=== PATIENT | male | born 1935 | race Caucasian/White ===

== ENCOUNTER 2016-10-04 18:40 | Inpatient (IN) | payer MEDICARE, OTHER ==
[2016-10-04 18:07] LABS: BASO % 0.1 % (0-2); EOS % 1.3 % (0-7); EOSINOPHIL ABSOLUTE COUNT 0.1 tho/cmm (0.0-0.7); HCT-HEMATOCRIT 34.7 % (36.0-53.5); HGB-HEMOGLOBIN 11.7 gm/dl (13.5-17.0); IMMATURE GRANULOCYTES ABSOLUTE 0.13 tho/cmm (0-0.03); IMMATURE GRANULOCYTES PERCENT 1.3 % (0-0.3); LYMPH % 8.4 % (20-45); LYMPH ABSOLUTE COUNT 0.9 tho/cmm (0.8-4.5); MCH (MEAN CORPUSCULAR HGB) 33.5 pg (28.0-32.0); MCHC MEAN CORPUSCULAR HGB CONC 33.7 % (32.0-36.0); MCV (MEAN CELL VOLUME) 99.4 fl (82.0-96.0); MEAN PLATELET VOLUME 10.1 cmc (9.4-12.4); MONO % 8.2 % (0-12); MONOCYTE ABSOLUTE COUNT 0.8 tho/cmm (0.0-1.2); NEUTROPHIL ABSOLUTE COUNT 8.3 tho/cmm (1.6-8.0); NEUTROPHIL-AUTOMATED 8.3 tho/cmm (1.6-8.0); NEUTROPHILS % 80.7 % (40-80); PLATELET COUNT 153 tho/cmm (150-450); RED BLOOD COUNT 3.49 mil/cmm (4.40-5.70); RED CELL DISTRIBUTION WIDTH 14.6 % (12.4-16.4); WHITE BLOOD COUNT 10.2 tho/cmm (4.0-10.0)
[2016-10-04 18:28] LABS: ANION GAP 11 mmol/L (0-20); BLOOD UREA NITROGEN 41 mg/dl (6-24); CALCIUM 7.9 mg/dl (8.5-10.5); CARBON DIOXIDE-VENOUS 25 mmol/L (22-32); CHLORIDE 105 mmol/l (96-110); CREATININE 1.61 mg/dl (0.60-1.30); GLUCOSE 108 mg/dL (70-110); SODIUM 136 mmol/L (135-145); eGFR VALUE FOR BLACK 46 mL/Min
[2016-10-04 18:30] LABS: POTASSIUM 4.5 mmol/L (3.7-5.1)
[~2016-10-04 18:40] MED LIST: ADVAIR 25028 BLISTE1 INH; ALBUTEROL 90 MCG INH; ALBUTEROL 90MCG INH; AMITIZA24 MC1 PO; AMITIZA24 MCG PO; ANTACID650 MG PO; ANTI-ITCH222 ML TP; ARANESP100 MCG/0. SC; ARANESP25 MCG/0.4 SC; ARTIFICIAL TEAR15 M8 EACH EYE; ASPIR 8181 MG; ASPIR 8181 MG PO; ASPIRIN EC81 M1 PO; ASPIRIN EC81 MG PEG; ATORVASTATIN CA40 M1 PEG; BACTERICIN14.2 GM TP; BACTRIM DS1 TAB PO; BRIMONIDINE TART5 M2 EACH EYE; CALCITRIOL0.25 MC1 PO; CALCIUM 600+D1 EAC1 PO; CALCIUM 600+D1 EAC6 PO; CALCIUM WITH VI1 TAB PO; CARAFATE1 G/10 ML PO; CARDURA2 MG; CARDURA4 M1 PO; CARDURA4 MG; CARDURA4 MG PO; CARDURA8 M1 PO; CARDURA8 MG; CLARITIN10 M2 PO; CLARITIN10 M6 PEG; CLARITIN10 M6 PO; CLARITIN10 M8 PO; CLARITIN10 MG; CLINDAMYCIN HC300 M2 PO; CLONIDINE HCL0.1 M2 PO; CONSTULOSE10 G/15 ML; COREG12.5 M1 PEG; COSOPT EYE DROPS5 ML BOTH EYES; COUMADIN5 M1 PO; COZAAR100 M1 PO; CRESTOR20 MG PO; CRESTOR20 MG/TAB PO; CRESTOR40 MG PO; CVS CALCIUM; CYCLOBENZAPRINE5 M1 PEG; DORZOLAMIDE-TIM10 M1 EACH EYE; DORZOLAMIDE-TIM10 ML OP; DULCOLAX10 MG/SUPP RC; ELIQUIS2.5 M1 PEG; EPA; FERAHEME510 MG/11 IV; FINASTERIDE5 M1 PO; FINASTERIDE5 MG PO; FLAGYL500 MG PO; FLEET ENEMA118 ML RC; FLOMAX0.4 M1 PO; FLUNISOLIDE25 M1; FLUNISOLIDE25 M3; FUROSEMIDE20 M1 PO; GABAPENTIN300 MG; GABAPENTIN300 MG PO; GLUCOSAMINE/CHO1 T; GLUCOSAMINE/CHONDROI; HALFPRIN162 MG PO; HEMODIALYSIS; HEPARIN LO10 UNIT/1 IV; HUMALOG100 U/ML SQ; HYDROCHLOROTHIA25 MG; HYDROCHLOROTHIAZIDE; HYDROCODON-ACE1 EAC5 PO; INDERAL10 MG PO; IRON; LASIX20 M1 PO; LASIX40 M1 PEG; LASIX40 M1 PO; LATANOPROST2.5 M1 EACH EYE; LATANOPROST2.5 ML OP; LEVAQUIN250 M1 PO; LEVAQUIN500 MG PO; LEVAQUIN750 M1 PO; LIDOCAINE5 GM TP; LIDODERM1 EACH TP; LIDODERM30 EA TP; LIPOSYN250 ML IV; LIQUITEARS15 ML BOTH EYES; LISINOPRIL; LISINOPRIL10 M1 PO; LISINOPRIL20 MG; LISINOPRIL40 MG; LOPRESSOR50 M1 PO; LOPRESSOR50 MG PO; LOVENOX120 MG/0.8 SQ; LOVENOX60 MG/0.6 SQ; LOVENOX80 MG/0.8 SQ; MEGACE PO; MEGACE400 MG/10 PO; MEGESTROL ACETA40 M1 PO; METAMUCIL1 PKT; MILK OF MA400 MG/5 M; MIRALAX17 G2 PEG; MIRALAX17 GM PO; MOISTURIZING L473 ML TP; MORPHINE SULFAT3; MUCINEX600 M1 PO; MULTAQ400 MG PO; MULTI-VITAMIN1 EAC1 PO; MULTI-VITAMIN1 EAC3 PO; MULTIVITAMIN; MULTIVITAMIN1 CAP; MULTIVITAMIN1 TAB PO; NAPROSYN500 MG; NASALIDE25 ML NS; NASAREL29 MCG; NEURONTIN300 M1 PEG; NEURONTIN300 MG PO; NICOTINE PATCH1 EACH TP; NORCO 10/325 TA1 TAB PO; NORCO 5/3251 TA1 PO; NORCO 7.5/3251 TA1 PO; NORVASC10 M2 PO; OMEGA 31 CAP; OMEGA-31000 M1 PO; OMEGA-31000 M2 PO; OMEGA-31000 MG PO; OMEPRAZOLE20 M2 PO; OMEPRAZOLE20 MG PO; OMEPRAZOLE40 MG PO; OXYCODONE-APAP; OYSTER SHELL C1 EA12 PO; PHOS-NAK PACKET1 PK1 PEG; POTASSIUM CHLO20 ME3 PEG; POTASSIUM-9999 MG PO; POTASSIUM99 M4 PO; PREDNISONE10 M1 PO; PRILOSEC20 M1 PO; PRILOSEC20 MG; PRINIVIL10 M1 PO; PRINIVIL5 M1 PEG; PROAIR HFA8.5 GM INH; PROSCAR5 M1 PO; PROTEIN SHAKE; PROVENTIL HFA6.7 GM IH; PYRIDOSTIGMINE60 M2 PEG; QUININE SULFAT260 MG; SODIUM BICARBO325 M1 PO; SODIUM BICARBO650 M1 PEG; SODIUM BICARBO650 M1 PO; SODIUM BICARBO650 MG PO; SODIUM CHLORIDE10 ML FL; SPIRIVA RESPIMAT4 G1 INH; SYMBICORT 16010.2 GM IH; SYMBICORT 80-41 PUFF INH; TEARS OP; TIMOLOL 0.5% OP; TOPICORT TOP; TOPICORT TP; TOPROL XL25 MG PO; TOPROL XL50 MG PO; TPN (ADULT)1 EA IV; TRAMADOL HCL50 M2 PEG; TRAMADOL HCL50 MG PO; TRAVATAN 0.0042.5 ML BOTH EYES; TRAVATAN 0.0042.5 ML OP; TRAVATAN5 ML; TRAZODONE HCL50 M1 PEG; TRAZODONE HCL50 MG PO; TRAZODONE50 MG PO; TYLENOL325 M2 PEG; TYLENOL325 MG PO; ULTRAM50 M1 PO; ULTRAM50 MG PO; VENTOLIN HFA18 G1 IH; VITAMIN; VITAMIN B 6 PO; VITAMIN B-121000 MC1 PO; VITAMIN B-6100 M1 PO; VITAMIN B12 PO; VITAMIN B12-FO1 EAC1 PO; VITAMIN B121000 MCG; VITAMIN B12500 MCG PO; VITAMIN B6 PO; VITAMIN B6100 MG; VITAMIN B6100 MG PO; XALATAN2.5 ML OP; ZITHROMAX250 M1 PEG; ZITHROMAX250 M1 PO; ZOCOR40 MG; ZOCOR80 MG; [UNRECOGNIZED DRUG - REMARK]; [UNRECOGNIZED DRUG - REMARK]; vitamin b12 PO
[2016-10-05 06:05] LABS: BASO % 0.1 % (0-2); HCT-HEMATOCRIT 36.4 % (36.0-53.5); HGB-HEMOGLOBIN 12.1 gm/dl (13.5-17.0); IMMATURE GRANULOCYTES PERCENT 1.2 % (0-0.3); LYMPH % 5.6 % (20-45); LYMPH ABSOLUTE COUNT 0.5 tho/cmm (0.8-4.5); MCH (MEAN CORPUSCULAR HGB) 33.1 pg (28.0-32.0); MCHC MEAN CORPUSCULAR HGB CONC 33.2 % (32.0-36.0); MCV (MEAN CELL VOLUME) 99.5 fl (82.0-96.0); MEAN PLATELET VOLUME 9.3 cmc (9.4-12.4); MONOCYTE ABSOLUTE COUNT 0.2 tho/cmm (0.0-1.2); NEUTROPHIL ABSOLUTE COUNT 7.4 tho/cmm (1.6-8.0); NEUTROPHIL-AUTOMATED 7.4 tho/cmm (1.6-8.0); NEUTROPHILS % 91.1 % (40-80); PLATELET COUNT 190 tho/cmm (150-450); RED BLOOD COUNT 3.66 mil/cmm (4.40-5.70); RED CELL DISTRIBUTION WIDTH 14.4 % (12.4-16.4); WHITE BLOOD COUNT 8.2 tho/cmm (4.0-10.0)
[2016-10-05 06:22] LABS: ANION GAP 16 mmol/L (0-20); BLOOD UREA NITROGEN 49 mg/dl (6-24); CARBON DIOXIDE-VENOUS 24 mmol/L (22-32); CHLORIDE 104 mmol/l (96-110); CREATININE 1.78 mg/dl (0.60-1.30); GLUCOSE 142 mg/dL (70-110); POTASSIUM 4.7 mmol/L (3.7-5.1); SODIUM 139 mmol/L (135-145); eGFR VALUE FOR BLACK 41 mL/Min
[2016-10-06 05:24] LABS: HGB-HEMOGLOBIN 10.8 gm/dl (13.5-17.0); PLATELET COUNT 207 tho/cmm (150-450)
[2016-10-06 05:29] LABS: ALBUMIN 2.4 g/dl (3.5-5.0); ANION GAP 16 mmol/L (0-20); BLOOD UREA NITROGEN 48 mg/dl (6-24); CALCIUM 6.9 mg/dl (8.5-10.5); CARBON DIOXIDE-VENOUS 23 mmol/L (22-32); CHLORIDE 107 mmol/l (96-110); CREATININE 1.66 mg/dl (0.60-1.30); GLUCOSE 145 mg/dL (70-110); PHOSPHOROUS 4.5 mg/dl (2.5-4.9); SODIUM 142 mmol/L (135-145); eGFR VALUE FOR BLACK 44 mL/Min
[2016-10-06 05:30] LABS: POTASSIUM 3.7 mmol/L (3.7-5.1)
[2016-10-06 13:19] LABS: BASO % 0.1 % (0-2); HCT-HEMATOCRIT 35.4 % (36.0-53.5); IMMATURE GRANULOCYTES ABSOLUTE 0.06 tho/cmm (0-0.03); IMMATURE GRANULOCYTES PERCENT 0.5 % (0-0.3); LYMPH % 8.2 % (20-45); MCH (MEAN CORPUSCULAR HGB) 33.2 pg (28.0-32.0); MCHC MEAN CORPUSCULAR HGB CONC 33.9 % (32.0-36.0); MCV (MEAN CELL VOLUME) 98.1 fl (82.0-96.0); MEAN PLATELET VOLUME 9.5 cmc (9.4-12.4); MONOCYTE ABSOLUTE COUNT 0.6 tho/cmm (0.0-1.2); NEUTROPHIL ABSOLUTE COUNT 10.8 tho/cmm (1.6-8.0); NEUTROPHIL-AUTOMATED 10.8 tho/cmm (1.6-8.0); NEUTROPHILS % 86.2 % (40-80); PLATELET COUNT 219 tho/cmm (150-450); RED BLOOD COUNT 3.61 mil/cmm (4.40-5.70); RED CELL DISTRIBUTION WIDTH 14.7 % (12.4-16.4)
[2016-10-06 13:20] LABS: WHITE BLOOD COUNT 12.5 tho/cmm (4.0-10.0)
[2016-10-06 13:34] LABS: BLOOD UREA NITROGEN 19 mg/dl (6-24); CALCIUM 7.2 mg/dl (8.5-10.5); CARBON DIOXIDE-VENOUS 24 mmol/L (22-32); CHLORIDE 105 mmol/l (96-110); CREATININE 0.98 mg/dl (0.60-1.30); GLUCOSE 121 mg/dL (70-110); SODIUM 141 mmol/L (135-145); eGFR VALUE FOR BLACK 84 mL/Min
[2016-10-06 13:37] LABS: ANION GAP 15 mmol/L (0-20); MAGNESIUM 1.8 mg/dl (1.8-2.6); POTASSIUM 3.2 mmol/L (3.7-5.1)
[2016-10-07 06:11] LABS: HCT-HEMATOCRIT 34.8 % (36.0-53.5); HGB-HEMOGLOBIN 11.6 gm/dl (13.5-17.0); IMMATURE GRANULOCYTES ABSOLUTE 0.06 tho/cmm (0-0.03); IMMATURE GRANULOCYTES PERCENT 0.7 % (0-0.3); LYMPH % 10.8 % (20-45); MCH (MEAN CORPUSCULAR HGB) 33.2 pg (28.0-32.0); MCHC MEAN CORPUSCULAR HGB CONC 33.3 % (32.0-36.0); MCV (MEAN CELL VOLUME) 99.7 fl (82.0-96.0); MEAN PLATELET VOLUME 9.5 cmc (9.4-12.4); MONO % 5.7 % (0-12); MONOCYTE ABSOLUTE COUNT 0.5 tho/cmm (0.0-1.2); NEUTROPHIL ABSOLUTE COUNT 7.5 tho/cmm (1.6-8.0); NEUTROPHIL-AUTOMATED 7.5 tho/cmm (1.6-8.0); NEUTROPHILS % 82.8 % (40-80); PLATELET COUNT 200 tho/cmm (150-450); RED BLOOD COUNT 3.49 mil/cmm (4.40-5.70); RED CELL DISTRIBUTION WIDTH 14.9 % (12.4-16.4)
[2016-10-07 06:17] LABS: CALCIUM 7.1 mg/dl (8.5-10.5); CARBON DIOXIDE-VENOUS 25 mmol/L (22-32); CHLORIDE 108 mmol/l (96-110); GLUCOSE 95 mg/dL (70-110); MAGNESIUM 2.2 mg/dl (1.8-2.6); SODIUM 143 mmol/L (135-145); eGFR VALUE FOR BLACK 48 mL/Min
[2016-10-07 06:20] LABS: ANION GAP 14 mmol/L (0-20); BLOOD UREA NITROGEN 37 mg/dl (6-24); CREATININE 1.56 mg/dl (0.60-1.30); POTASSIUM 4.3 mmol/L (3.7-5.1)
[2016-10-07 18:40] LABS: PROCALCITONIN 0.05 ng/ml (0.05-0.09)
[2016-10-08 06:14] LABS: HGB-HEMOGLOBIN 11.6 gm/dl (13.5-17.0); PLATELET COUNT 195 tho/cmm (150-450)
[2016-10-08 06:30] LABS: ALBUMIN 2.4 g/dl (3.5-5.0); ANION GAP 16 mmol/L (0-20); BLOOD UREA NITROGEN 52 mg/dl (6-24); CARBON DIOXIDE-VENOUS 23 mmol/L (22-32); CHLORIDE 105 mmol/l (96-110); CREATININE 1.91 mg/dl (0.60-1.30); GLUCOSE 130 mg/dL (70-110); PHOSPHOROUS 5.3 mg/dl (2.5-4.9); POTASSIUM 4.5 mmol/L (3.7-5.1); SODIUM 139 mmol/L (135-145); eGFR VALUE FOR BLACK 38 mL/Min
[2016-10-10 04:22] LABS: HGB-HEMOGLOBIN 11.9 gm/dl (13.5-17.0); PLATELET COUNT 227 tho/cmm (150-450)
[2016-10-10 04:39] LABS: ANION GAP 14 mmol/L (0-20); BLOOD UREA NITROGEN 41 mg/dl (6-24); CALCIUM 6.9 mg/dl (8.5-10.5); CARBON DIOXIDE-VENOUS 25 mmol/L (22-32); CHLORIDE 102 mmol/l (96-110); CREATININE 1.66 mg/dl (0.60-1.30); GLUCOSE 162 mg/dL (70-110); PHOSPHOROUS 3.6 mg/dl (2.5-4.9); POTASSIUM 3.9 mmol/L (3.7-5.1); SODIUM 137 mmol/L (135-145); eGFR VALUE FOR BLACK 44 mL/Min
[2016-10-12 05:52] LABS: BASO % 0.2 % (0-2); EOS % 0.1 % (0-7); HCT-HEMATOCRIT 36.8 % (36.0-53.5); HGB-HEMOGLOBIN 12.1 gm/dl (13.5-17.0); IMMATURE GRANULOCYTES ABSOLUTE 0.19 tho/cmm (0-0.03); LYMPH % 5.6 % (20-45); LYMPH ABSOLUTE COUNT 0.5 tho/cmm (0.8-4.5); MCH (MEAN CORPUSCULAR HGB) 32.7 pg (28.0-32.0); MCHC MEAN CORPUSCULAR HGB CONC 32.9 % (32.0-36.0); MCV (MEAN CELL VOLUME) 99.5 fl (82.0-96.0); MEAN PLATELET VOLUME 9.5 cmc (9.4-12.4); MONO % 10.6 % (0-12); NEUTROPHIL ABSOLUTE COUNT 7.7 tho/cmm (1.6-8.0); NEUTROPHIL-AUTOMATED 7.7 tho/cmm (1.6-8.0); NEUTROPHILS % 81.5 % (40-80); PLATELET COUNT 246 tho/cmm (150-450); RED CELL DISTRIBUTION WIDTH 14.6 % (12.4-16.4); WHITE BLOOD COUNT 9.5 tho/cmm (4.0-10.0)
[2016-10-12 05:59] LABS: ALBUMIN 2.3 g/dl (3.5-5.0); ANION GAP 14 mmol/L (0-20); BLOOD UREA NITROGEN 45 mg/dl (6-24); CALCIUM 6.7 mg/dl (8.5-10.5); CARBON DIOXIDE-VENOUS 28 mmol/L (22-32); CHLORIDE 105 mmol/l (96-110); CREATININE 1.64 mg/dl (0.60-1.30); GLUCOSE 134 mg/dL (70-110); PHOSPHOROUS 3.7 mg/dl (2.5-4.9); POTASSIUM 4.5 mmol/L (3.7-5.1); SODIUM 142 mmol/L (135-145); eGFR VALUE FOR BLACK 45 mL/Min
[2016-10-13] MEDS ORDERED: ALBUTEROL1.25 MG/3 INH (12:12)
[2016-10-13] MEDS ORDERED: ALBUTEROL1.25 MG/3 (12:12)
[2016-10-13] MEDS ORDERED: AMIODARONE HCL200 M1 GT (12:14)
[2016-10-13] MEDS ORDERED: ZESTRIL5 M1 PEG (12:15)
[2016-10-13] MEDS ORDERED: MUCINEX600 M1 PO (12:20)
[2016-10-13] MEDS ORDERED: PREDNISONE10 M1 (12:25)
== END 2016-10-13 16:45 | DRG 190 ==
LOC: EDMED 18:40 → 5WE 21:19 → PCUB 10-08 14:38
PROVIDERS: Emergency Medicine; Internal Medicine; Internal Medicine Nephrology; Physician Assistant; ADMIT Hospitalist
PROC: 05H533Z Insertion of Infusion Device into Right Subclavian Vein, Percutaneous Approach (ICD-10-PCS; principal; 2016-10-05)
PROC: 5A1D60Z (ICD-10-PCS; 2016-10-05)
DX: J44.0 Chronic obstructive pulmonary disease with (acute) lower respiratory infection (principal); J96.01 Acute respiratory failure with hypoxia; I13.2 Hypertensive heart and chronic kidney disease with heart failure and with stage 5 chronic kidney disease, or end stage renal disease; J15.9 Unspecified bacterial pneumonia; E46 Unspecified protein-calorie malnutrition; G62.9 Polyneuropathy, unspecified; N18.6 End stage renal disease; I48.2 Chronic atrial fibrillation; I50.42 Chronic combined systolic (congestive) and diastolic (congestive) heart failure; Z68.1 Body mass index [BMI] 19.9 or less, adult; J44.1 Chronic obstructive pulmonary disease with (acute) exacerbation; R13.10 Dysphagia, unspecified; Z79.01 Long term (current) use of anticoagulants; K22.70 Barrett's esophagus without dysplasia; K21.9 Gastro-esophageal reflux disease without esophagitis; M79.672 Pain in left foot; E78.5 Hyperlipidemia, unspecified; N40.0 Benign prostatic hyperplasia without lower urinary tract symptoms; I73.9 Peripheral vascular disease, unspecified; Z88.0 Allergy status to penicillin; Z88.8 Allergy status to other drugs, medicaments and biological substances; Z99.2 Dependence on renal dialysis; Z85.528 Personal history of other malignant neoplasm of kidney; Z93.1 Gastrostomy status; K31.84 Gastroparesis; Z87.891 Personal history of nicotine dependence; D63.1 Anemia in chronic kidney disease; H91.90 Unspecified hearing loss, unspecified ear; Z66 Do not resuscitate; M79.89 Other specified soft tissue disorders; E87.6 Hypokalemia; R91.1 Solitary pulmonary nodule; T17.920A Food in respiratory tract, part unspecified causing asphyxiation, initial encounter; Z87.11 Personal history of peptic ulcer disease; Z91.81 History of falling; B34.8 Other viral infections of unspecified site
CPT/HCPCS: C1751; G8996-GN-CL; G8997-GN-CL; G8998-GN-CL; J1650; J1940; J1956; J2920; J2930; J3370; J3475; J7030; J7050; J7512; J7999

== ENCOUNTER 2016-11-30 09:24 | Inpatient (IN) | payer MEDICARE, OTHER ==
[~2016-11-30 09:24] MED LIST changes: +ALBUTEROL1.25 MG/3; +ALBUTEROL1.25 MG/3 INH; +AMIODARONE HCL200 M1 GT; +PREDNISONE10 M1; +ZESTRIL5 M1 PEG
[2016-11-30] MEDS ORDERED: PREDNISONE5 M1 PO (10:16)
[2016-11-30] MEDS ORDERED: CARDURA2 M2 PO (10:19)
[2016-11-30 10:20] LABS: ABG CO2 ARTERIAL 26 mmol/L (21-27); ARTERIAL BLD GAS O2 SATURATION 93 % (95-98); ARTERIAL BLOOD GAS PCO2 37 mmHg (32-45); ARTERIAL PO2 66 mmHg (70-100); BICARBONATE 25 mmol/L (21-28); BLOOD GAS BASE EXCESS 1 mM/L (-/+3); PH 7.44 Units (7.35-7.45)
[2016-11-30] MEDS ORDERED: CLARITIN10 M6 PO (10:24)
[2016-11-30 10:26] LABS: BASO % 0.1 % (0-2); EOSINOPHIL ABSOLUTE COUNT 0.1 tho/cmm (0.0-0.7); HCT-HEMATOCRIT 35.4 % (36.0-53.5); HGB-HEMOGLOBIN 11.5 gm/dl (13.5-17.0); IMMATURE GRANULOCYTES ABSOLUTE 0.11 tho/cmm (0-0.03); IMMATURE GRANULOCYTES PERCENT 0.8 % (0-0.3); LYMPH % 7.6 % (20-45); LYMPH ABSOLUTE COUNT 1.1 tho/cmm (0.8-4.5); MCH (MEAN CORPUSCULAR HGB) 32.4 pg (28.0-32.0); MCHC MEAN CORPUSCULAR HGB CONC 32.5 % (32.0-36.0); MCV (MEAN CELL VOLUME) 99.7 fl (82.0-96.0); MEAN PLATELET VOLUME 9.6 cmc (9.4-12.4); MONO % 5.4 % (0-12); MONOCYTE ABSOLUTE COUNT 0.8 tho/cmm (0.0-1.2); NEUTROPHIL ABSOLUTE COUNT 11.9 tho/cmm (1.6-8.0); NEUTROPHIL-AUTOMATED 11.9 tho/cmm (1.6-8.0); NEUTROPHILS % 85.1 % (40-80); PLATELET COUNT 251 tho/cmm (150-450); RED BLOOD COUNT 3.55 mil/cmm (4.40-5.70)
[2016-11-30] MEDS ORDERED: ALBUTEROL1.25 MG/3 INH (10:42)
[2016-11-30 10:47] LABS: ALB/GLOB RATIO 0.8 (0.8-2.0); ALKALINE PHOSPHATASE 175 U/L (33-138); ALT/SGPT 32 U/L (12-78); ANION GAP 18 mmol/L (0-20); AST/SGOT 21 U/L (10-40); BILIRUBIN,TOTAL 0.4 mg/dl (0.0-1.5); BLOOD UREA NITROGEN 71 mg/dl (6-24); CALCIUM 8.5 mg/dl (8.5-10.5); CARBON DIOXIDE-VENOUS 25 mmol/L (22-32); CHLORIDE 99 mmol/l (96-110); CREATININE 2.74 mg/dl (0.60-1.30); GLUCOSE 124 mg/dL (70-110); MAGNESIUM 2.3 mg/dl (1.8-2.6); PHOSPHOROUS 3.4 mg/dl (2.5-4.9); POTASSIUM 4.7 mmol/L (3.7-5.1); SODIUM 137 mmol/L (135-145); eGFR VALUE FOR BLACK 24 mL/Min
[2016-11-30] MEDS ORDERED: PHOS-NAK PACKET1 PK1 PEG (10:58)
[2016-11-30] MEDS ORDERED: MOISTURIZING L473 ML TP (11:00)
[2016-11-30] MEDS ORDERED: FLONASE ALLERG9.9 ML (11:00)
[2016-11-30] MEDS ORDERED: SARNA222 ML TP (11:01)
[2016-11-30] MEDS ORDERED: HYDROCODON-ACE1 EA16 PO (11:02)
[2016-11-30] MEDS ORDERED: [UNRECOGNIZED DRUG - REMARK] (11:13)
[2016-11-30] MEDS ORDERED: FERAHEME510 MG/11 IV (11:14)
[2016-11-30] MEDS ORDERED: ARANESP25 MCG/1 M SC (11:14)
[2016-12-01 05:11] LABS: BASO % 0.2 % (0-2); EOS % 1.3 % (0-7); EOSINOPHIL ABSOLUTE COUNT 0.1 tho/cmm (0.0-0.7); HCT-HEMATOCRIT 33.4 % (36.0-53.5); HGB-HEMOGLOBIN 11.1 gm/dl (13.5-17.0); IMMATURE GRANULOCYTES ABSOLUTE 0.22 tho/cmm (0-0.03); IMMATURE GRANULOCYTES PERCENT 2.4 % (0-0.3); LYMPH % 13.7 % (20-45); LYMPH ABSOLUTE COUNT 1.3 tho/cmm (0.8-4.5); MCH (MEAN CORPUSCULAR HGB) 32.6 pg (28.0-32.0); MCHC MEAN CORPUSCULAR HGB CONC 33.2 % (32.0-36.0); MCV (MEAN CELL VOLUME) 98.2 fl (82.0-96.0); MEAN PLATELET VOLUME 9.7 cmc (9.4-12.4); MONO % 12.8 % (0-12); MONOCYTE ABSOLUTE COUNT 1.2 tho/cmm (0.0-1.2); NEUTROPHIL ABSOLUTE COUNT 6.4 tho/cmm (1.6-8.0); NEUTROPHIL-AUTOMATED 6.4 tho/cmm (1.6-8.0); NEUTROPHILS % 69.6 % (40-80); PLATELET COUNT 250 tho/cmm (150-450); RED CELL DISTRIBUTION WIDTH 16.2 % (12.4-16.4); WHITE BLOOD COUNT 9.2 tho/cmm (4.0-10.0)
[2016-12-01 05:23] LABS: ALB/GLOB RATIO 0.6 (0.8-2.0); ALBUMIN 2.3 g/dl (3.5-5.0); ALKALINE PHOSPHATASE 149 U/L (33-138); ALT/SGPT 31 U/L (12-78); BILIRUBIN,TOTAL 0.5 mg/dl (0.0-1.5); BLOOD UREA NITROGEN 42 mg/dl (6-24); CALCIUM 7.6 mg/dl (8.5-10.5); CARBON DIOXIDE-VENOUS 25 mmol/L (22-32); CHLORIDE 100 mmol/l (96-110); GLUCOSE 114 mg/dL (70-110); SODIUM 134 mmol/L (135-145); eGFR VALUE FOR BLACK 28 mL/Min
[2016-12-01 05:48] LABS: ANION GAP 14 mmol/L (0-20); AST/SGOT 25 U/L (10-40); POTASSIUM 4.6 mmol/L (3.7-5.1)
--- NOTE | 2016-12-01 22:00 | NUR ---
VN ROUNDING DEFERRED PATIENT SLEEPING-EMR REVIEWED
--- NOTE | 2016-12-01 22:01 | NUR ---
VN ROUNDING DEFERRED-PATIENT SLEEPING-EMR REVIEWED
[2016-12-02 05:17] LABS: BASO % 0.1 % (0-2); EOS % 1.8 % (0-7); EOSINOPHIL ABSOLUTE COUNT 0.1 tho/cmm (0.0-0.7); HCT-HEMATOCRIT 33.4 % (36.0-53.5); HGB-HEMOGLOBIN 10.9 gm/dl (13.5-17.0); IMMATURE GRANULOCYTES ABSOLUTE 0.15 tho/cmm (0-0.03); IMMATURE GRANULOCYTES PERCENT 1.9 % (0-0.3); LYMPH % 11.4 % (20-45); LYMPH ABSOLUTE COUNT 0.9 tho/cmm (0.8-4.5); MCH (MEAN CORPUSCULAR HGB) 32.6 pg (28.0-32.0); MCHC MEAN CORPUSCULAR HGB CONC 32.6 % (32.0-36.0); MEAN PLATELET VOLUME 9.7 cmc (9.4-12.4); MONOCYTE ABSOLUTE COUNT 1.3 tho/cmm (0.0-1.2); NEUTROPHIL ABSOLUTE COUNT 5.3 tho/cmm (1.6-8.0); NEUTROPHIL-AUTOMATED 5.3 tho/cmm (1.6-8.0); NEUTROPHILS % 67.8 % (40-80); PLATELET COUNT 250 tho/cmm (150-450); RED BLOOD COUNT 3.34 mil/cmm (4.40-5.70); RED CELL DISTRIBUTION WIDTH 15.9 % (12.4-16.4); WHITE BLOOD COUNT 7.8 tho/cmm (4.0-10.0)
[2016-12-02 05:28] LABS: ANION GAP 12 mmol/L (0-20); BLOOD UREA NITROGEN 39 mg/dl (6-24); CALCIUM 7.9 mg/dl (8.5-10.5); CARBON DIOXIDE-VENOUS 28 mmol/L (22-32); CHLORIDE 99 mmol/l (96-110); CREATININE 2.63 mg/dl (0.60-1.30); GLUCOSE 102 mg/dL (70-110); MAGNESIUM 1.8 mg/dl (1.8-2.6); POTASSIUM 4.4 mmol/L (3.7-5.1); SODIUM 135 mmol/L (135-145); eGFR VALUE FOR BLACK 25 mL/Min
--- NOTE | 2016-12-02 16:11 | NUR ---
VIRTUAL CARE NOTE: PT RESTING ON BED, C/O BACK PAIN MRI WAS DONE TODAY, RESULTS REVIEWED WITH PT-NOT SIGNIFICANT CONCERNS. PT HAS BEEN TAKING PAIN PILLS AND IT HELPS BUT THEN THE PAIN COMES BACK AGAIN. ORDERS AND CHART REVIEWED. PT WILL HAVE DIALYSIS TOMORROW. DENIES ANY NEEDS AT THIS TIME.
--- NOTE | 2016-12-02 20:29 | NUR ---
VIRTUAL CARE NOTE: ASSESSMENT DEFERRED. PT. SLEEPING.
[2016-12-03 05:42] LABS: BASO % 0.1 % (0-2); EOS % 1.8 % (0-7); EOSINOPHIL ABSOLUTE COUNT 0.2 tho/cmm (0.0-0.7); HCT-HEMATOCRIT 34.2 % (36.0-53.5); HGB-HEMOGLOBIN 11.5 gm/dl (13.5-17.0); IMMATURE GRANULOCYTES ABSOLUTE 0.12 tho/cmm (0-0.03); IMMATURE GRANULOCYTES PERCENT 1.4 % (0-0.3); LYMPH % 15.1 % (20-45); LYMPH ABSOLUTE COUNT 1.3 tho/cmm (0.8-4.5); MCHC MEAN CORPUSCULAR HGB CONC 33.6 % (32.0-36.0); MEAN PLATELET VOLUME 9.6 cmc (9.4-12.4); MONO % 8.7 % (0-12); MONOCYTE ABSOLUTE COUNT 0.8 tho/cmm (0.0-1.2); NEUTROPHIL ABSOLUTE COUNT 6.4 tho/cmm (1.6-8.0); NEUTROPHIL-AUTOMATED 6.4 tho/cmm (1.6-8.0); NEUTROPHILS % 72.9 % (40-80); PLATELET COUNT 225 tho/cmm (150-450); RED BLOOD COUNT 3.49 mil/cmm (4.40-5.70); RED CELL DISTRIBUTION WIDTH 15.7 % (12.4-16.4); WHITE BLOOD COUNT 8.8 tho/cmm (4.0-10.0)
--- NOTE | 2016-12-04 19:09 | NUR ---
VIRTUAL CARE NOTE: PT. IS IN BED, DENIES NEEDS OR PAIN AT THIS TIME. EDUCATION PROVIDED NOT TO GET OUT OF BED WITHOUT HELP. INSTRUCTED ALSO TO CALL FOR FUTURE NEEDS. STATES VERBAL AGREEMENT.
--- NOTE | 2016-12-05 13:23 | NUR ---
VIRTUAL CARE NOTE: PT AWAKE, RESTING IN BED, NO VISITORS AT BEDSIDE AT THIS TIME. PT STATES HE IS FEELING WELL TODAY, C/O SOME BACK PAIN AND STATES "SHE'S GOING TO BE GIVING ME A PILL HERE SHORTLY". POSSIBLE DC HOME W/ [facility] TOMORROW AFTER DIALYSIS. PT DENIES QUESTIONS/CONCERNS AT THIS TIME. VN WILL CONTINUE TO MONITOR ELECTRONIC RECORD AND FOLLOW W/PT
--- NOTE | 2016-12-05 20:50 | NUR ---
VIRTUAL CARE NOTE: UNABLE TO VIEW PT. DUE TO CAMERA NOT TURNING, ALTHOUGH THE PT. CAN SEE THIS RN. PT. STATES HIS BACK AND CHEST AREA ARE SORE BUT DOESN'T WANT ANYTHING FOR IT AT THIS TIME. ALSO STATES HAS BIOTENE FOR ORAL CARES NEEDED. DENIES FURTHER NEEDS AT THIS TIME. STATES WILL CALL IF HE NEEDS PAIN MEDS.
[2016-12-06 06:32] LABS: HCT-HEMATOCRIT 33.8 % (36.0-53.5); HGB-HEMOGLOBIN 11.1 gm/dl (13.5-17.0); MCV (MEAN CELL VOLUME) 98.3 fl (82.0-96.0); RED CELL DISTRIBUTION WIDTH 15.1 % (12.4-16.4)
[2016-12-06 06:46] LABS: ANION GAP 15 mmol/L (0-20); BLOOD UREA NITROGEN 52 mg/dl (6-24); CALCIUM 8.1 mg/dl (8.5-10.5); CARBON DIOXIDE-VENOUS 28 mmol/L (22-32); CHLORIDE 99 mmol/l (96-110); CREATININE 2.76 mg/dl (0.60-1.30); GLUCOSE 124 mg/dL (70-110); PHOSPHOROUS 5.5 mg/dl (2.5-4.9); POTASSIUM 4.7 mmol/L (3.7-5.1); SODIUM 137 mmol/L (135-145); eGFR VALUE FOR BLACK 24 mL/Min
--- NOTE | 2016-12-06 13:12 | NUR ---
VIRTUAL CARE NOTE: PT RESTING ON BED, AT BESIDE, PLAN OF CARE DISCUSSED WITH PT AND . ALL QUESTIONS ASWERED, CONCERNS ABOUT AMITIZA CAN'T BE CRUSHED TO GIVE THROUGH THE TF. DAWIT CONTACTED PHARMACY [facility]OR[facility] AND SHE WILL CHECK WITH TO SWITCH OVER TO LINZESS. VN INFORMED OF THE PROCESS. NO FURTHER QUESTIONS OR CONCERNS AT THIS TIME.
[2016-12-07 06:39] LABS: ANION GAP 13 mmol/L (0-20); BLOOD UREA NITROGEN 37 mg/dl (6-24); CALCIUM 8.2 mg/dl (8.5-10.5); CARBON DIOXIDE-VENOUS 30 mmol/L (22-32); CHLORIDE 98 mmol/l (96-110); CREATININE 2.21 mg/dl (0.60-1.30); GLUCOSE 122 mg/dL (70-110); PHOSPHOROUS 4.5 mg/dl (2.5-4.9); POTASSIUM 4.4 mmol/L (3.7-5.1); SODIUM 137 mmol/L (135-145); eGFR VALUE FOR BLACK 31 mL/Min
[2016-12-07] MEDS ORDERED: LINZESS145 MC1 GT (09:30)
[2016-12-07] MEDS ORDERED: LEVAQUIN500 M1 PO (09:38)
[2016-12-07] MEDS ORDERED: STOP HOME MEDICATION (10:02)
[2016-12-07] MEDS ORDERED: TYLENOL ARTHRI650 M1 GT (10:04)
[2016-12-07] MEDS ORDERED: TYLENOL325 M2 PO (15:26)
[2016-12-07] MEDS ORDERED: TYLENOL LIQUID GT (16:03)
== END 2016-12-07 16:20 | disposition home health service (06) | DRG 177 ==
LOC: EDMED 09:24 → EMR2 11:27 → 5WD 12:53
PROVIDERS: Emergency Medicine; Internal Medicine; Internal Medicine Nephrology; ADMIT Family Medicine
PROC: 5A1D60Z (ICD-10-PCS; principal; 2016-11-30)
DX: J69.0 Pneumonitis due to inhalation of food and vomit (principal); N18.6 End stage renal disease; J96.01 Acute respiratory failure with hypoxia; I12.0 Hypertensive chronic kidney disease with stage 5 chronic kidney disease or end stage renal disease; M48.54XA Collapsed vertebra, not elsewhere classified, thoracic region, initial encounter for fracture; I42.9 Cardiomyopathy, unspecified; Z99.2 Dependence on renal dialysis; H40.9 Unspecified glaucoma; Z85.528 Personal history of other malignant neoplasm of kidney; K21.9 Gastro-esophageal reflux disease without esophagitis; E78.5 Hyperlipidemia, unspecified; I48.2 Chronic atrial fibrillation; J44.9 Chronic obstructive pulmonary disease, unspecified; R13.10 Dysphagia, unspecified; Z79.01 Long term (current) use of anticoagulants; I73.9 Peripheral vascular disease, unspecified; K31.84 Gastroparesis; Z88.0 Allergy status to penicillin; Z88.8 Allergy status to other drugs, medicaments and biological substances; Z79.02 Long term (current) use of antithrombotics/antiplatelets; Z66 Do not resuscitate; K22.70 Barrett's esophagus without dysplasia; D63.1 Anemia in chronic kidney disease; R07.9 Chest pain, unspecified; M19.90 Unspecified osteoarthritis, unspecified site; Z87.11 Personal history of peptic ulcer disease; Z87.891 Personal history of nicotine dependence; N40.1 Benign prostatic hyperplasia with lower urinary tract symptoms; R33.8 Other retention of urine; I20.9 Angina pectoris, unspecified
CPT/HCPCS: C9113; J1170; J1956; J2185; J2405; J3370

== ENCOUNTER 2016-12-10 14:10 | Inpatient (IN) | payer MEDICARE, OTHER ==
[~2016-12-10 14:10] MED LIST changes: +ARANESP25 MCG/1 M SC; +CARDURA2 M2 PO; +FLONASE ALLERG9.9 ML; +HYDROCODON-ACE1 EA16 PO; +LEVAQUIN500 M1 PO; +LINZESS145 MC1 GT; +PREDNISONE5 M1 PO; +SARNA222 ML TP; +STOP HOME MEDICATION; +TYLENOL ARTHRI650 M1 GT; +TYLENOL LIQUID GT; +TYLENOL325 M2 PO
[2016-12-10] MEDS ORDERED: ALBUTEROL2.5 MG/3 M PO (14:45)
[2016-12-10] MEDS ORDERED: ROBAFEN100 MG/52 GT (15:20)
[2016-12-10] MEDS ORDERED: PROBIOTIC1 EAC6 GT (15:37)
[2016-12-11 05:38] LABS: BASO % 0.1 % (0-2); HCT-HEMATOCRIT 29.9 % (36.0-53.5); HGB-HEMOGLOBIN 9.9 gm/dl (13.5-17.0); IMMATURE GRANULOCYTES ABSOLUTE 0.12 tho/cmm (0-0.03); LYMPH % 7.2 % (20-45); LYMPH ABSOLUTE COUNT 0.9 tho/cmm (0.8-4.5); MCH (MEAN CORPUSCULAR HGB) 32.7 pg (28.0-32.0); MCHC MEAN CORPUSCULAR HGB CONC 33.1 % (32.0-36.0); MCV (MEAN CELL VOLUME) 98.7 fl (82.0-96.0); MEAN PLATELET VOLUME 9.5 cmc (9.4-12.4); MONO % 4.3 % (0-12); MONOCYTE ABSOLUTE COUNT 0.5 tho/cmm (0.0-1.2); NEUTROPHIL ABSOLUTE COUNT 10.5 tho/cmm (1.6-8.0); NEUTROPHIL-AUTOMATED 10.5 tho/cmm (1.6-8.0); NEUTROPHILS % 87.4 % (40-80); PLATELET COUNT 307 tho/cmm (150-450); RED BLOOD COUNT 3.03 mil/cmm (4.40-5.70); RED CELL DISTRIBUTION WIDTH 15.1 % (12.4-16.4)
[2016-12-11 05:56] LABS: ALBUMIN 2.6 g/dl (3.5-5.0); ANION GAP 15 mmol/L (0-20); BLOOD UREA NITROGEN 64 mg/dl (6-24); CALCIUM 8.7 mg/dl (8.5-10.5); CARBON DIOXIDE-VENOUS 26 mmol/L (22-32); CHLORIDE 99 mmol/l (96-110); CREATININE 3.08 mg/dl (0.60-1.30); GLUCOSE 168 mg/dL (70-110); MAGNESIUM 2.4 mg/dl (1.8-2.6); PHOSPHOROUS 2.2 mg/dl (2.5-4.9); POTASSIUM 4.6 mmol/L (3.7-5.1); SODIUM 135 mmol/L (135-145); eGFR VALUE FOR BLACK 21 mL/Min
[2016-12-12] MEDS ORDERED: TOPROL XL25 M1 PO (15:47)
== END 2016-12-12 17:00 | DRG 205 ==
LOC: 5EB 14:10
PROVIDERS: Internal Medicine; ADMIT Internal Medicine
PROC: 5A1D00Z (ICD-10-PCS; principal; 2016-12-11)
DX: R09.02 Hypoxemia (principal); N18.6 End stage renal disease; S22.060A Wedge compression fracture of T7-T8 vertebra, initial encounter for closed fracture; I12.0 Hypertensive chronic kidney disease with stage 5 chronic kidney disease or end stage renal disease; J44.1 Chronic obstructive pulmonary disease with (acute) exacerbation; I48.2 Chronic atrial fibrillation; J43.9 Emphysema, unspecified; K21.9 Gastro-esophageal reflux disease without esophagitis; D64.9 Anemia, unspecified; E78.5 Hyperlipidemia, unspecified; N40.0 Benign prostatic hyperplasia without lower urinary tract symptoms; R13.10 Dysphagia, unspecified; F17.210 Nicotine dependence, cigarettes, uncomplicated; Z66 Do not resuscitate; Z90.5 Acquired absence of kidney; Z99.2 Dependence on renal dialysis; Z93.1 Gastrostomy status; Z79.01 Long term (current) use of anticoagulants; Z79.82 Long term (current) use of aspirin; Z79.51 Long term (current) use of inhaled steroids; Z79.899 Other long term (current) drug therapy; Z99.81 Dependence on supplemental oxygen
CPT/HCPCS: G8988-GO-CI; G8989-GO-CJ; J1650